=== PATIENT | female | born 1945 | race Caucasian/White ===

== ENCOUNTER 2017-09-18 08:00 | Day surgery (SDC) | payer MEDICARE, SELFPAY ==
[2017-09-18 08:27] VITALS: BP 155/71; PULSE 75; RESP 16; TEMP 36.1; O2SAT 100; BMI 28.1
--- NOTE | 2017-09-18 10:37 | PCM.OPRPT ---
Problem List (1) Family history of stomach cancer Status: Acute (2) Gastro-esophageal reflux disease without esophagitis Status: Acute (3) Personal history of colonic polyps Status: Acute Report of Operation Date of Procedure: 09/18/17 Pre-Operative Diagnosis: z80.0 family history of stomach cancer. k21.9 gastroesophageal reflux disease without esophagitis. z86.010 personal history of colonic polyps Post-Operative Diagnosis: Same Surgery/Procedure Performed:: 1. 24899 esophagogastroduodenoscopy. 2. Incomplete colonoscopy Description of Surgical Findings:: Was only able to pass the colonoscope to 40 cm was unable to get through the sigmoid colon Type of Anesthesia:: MAC Anesthesiologist: Ronn Atkinson Description of Procedure: Patient was brought into the endoscopy suite. Back of her throat was sprayed with Cetacaine spray. A bite-block was placed. She was placed on the left lateral decubitus position. She was given graded anesthesia. The scope was inserted in the back of the oropharynx and directed down through the esophagus into the stomach and into the duodenum without difficulty. Operative findings: 1. Duodenum: Normal appearance no mass lesions or mucosal all look normal here 2. Stomach: Normal appearance no mass lesions no ulcerations no signs of erythema no signs bleeding no mucosal abnormalities 3. Esophagus: Normal appearance no mass lesions minimal Schatzki's ring no signs of erythema all the mucosa looked normal. The colonoscope was inserted into the rectum directed through the rectum and into the sigmoid colon to approximately 40 cm I gave the patient some glucagon to see if we could loosen things up and make things a little easier to pass but I just was unable to do it I remove the scope entirety replaced the scope and tried to attempt to do it one more time but I still was unable to get past 40 cm. I decided it was not in her best interest for me to continue to push and I aborted the rest of the procedure and I will obtain a barium enema. - Admit VTE Documentation VTE Present on Admission: No VTE Mechan Device Prophylaxis: None VTE Pharm Prophylaxis ordered?: No Reason prophylaxis not ordered:: Treatment Not Indicated
[2017-09-18 10:38] VITALS: BP 113/56; BP 155/71; PULSE 76; RESP 16; TEMP 36.7; O2SAT 98
[2017-09-18 10:43] VITALS: BP 109/55; BP 155/71; PULSE 78; RESP 17; O2SAT 98
--- NOTE | 2017-09-18 10:43 | RAD_ITS ---
STUDY: BARIUM ENEMA. REASON FOR EXAM: Female, 71 years old. Incomplete colonoscopy. History of polyps. FLUOROSCOPY TIME (if supplied): (1:03) minutes/seconds TECHNIQUE: A smoked meat preparer film was obtained. Following this, barium was introduced retrograde through the rectum. The entire colon was opacified. COMPARISON: None. FINDINGS: On the smoked meat preparer film, the gas pattern is unremarkable. There is evidence of mild levoscoliosis and degenerative changes of the lower lumbar spine. Contrast was introduced retrograde into the rectum. The entire colon was opacified. There is no evidence of antegrade or retrograde obstruction to the flow of contrast. No mass lesion is seen. RAD/Barium Enema No Air Cont IMPRESSION: Unremarkable barium enema. Electronically Signed: Tc Bowen MD at 14:11 EST Tel [phone], Service support ,
[2017-09-18 10:48] VITALS: BP 110/57; BP 155/71; PULSE 75; RESP 17; O2SAT 99
[2017-09-18 10:53] VITALS: BP 114/72; BP 155/71; PULSE 72; RESP 16; TEMP 36.9; O2SAT 100
[2017-09-18 12:36] VITALS: BP 155/71
== END 2017-09-18 12:37 | disposition home or self-care (01) ==
LOC: EN 08:00 → AC 08:03
PROVIDERS: Family Provider Nurse Practitioner Primary Care; PCP Nurse Practitioner Primary Care; Visit Provider Surgery
PROC: 0DJD8ZZ Inspection of Lower Intestinal Tract, Via Natural or Artificial Opening Endoscopic (ICD-10-PCS; CPT 45378; principal; 2017-09-18 08:55)
DX: K22.2 Esophageal obstruction (principal); K21.9 Gastro-esophageal reflux disease without esophagitis; Z86.010 Personal history of colon polyps; Z80.0 Family history of malignant neoplasm of digestive organs; M19.90 Unspecified osteoarthritis, unspecified site; F32.9 Major depressive disorder, single episode, unspecified; K58.9 Irritable bowel syndrome, unspecified; R00.2 Palpitations; G43.909 Migraine, unspecified, not intractable, without status migrainosus; G25.81 Restless legs syndrome; E78.00 Pure hypercholesterolemia, unspecified; N28.1 Cyst of kidney, acquired; Z87.19 Personal history of other diseases of the digestive system; Z86.73 Personal history of transient ischemic attack (TIA), and cerebral infarction without residual deficits; Z86.718 Personal history of other venous thrombosis and embolism; Z85.828 Personal history of other malignant neoplasm of skin; Z78.0 Asymptomatic menopausal state; Z79.82 Long term (current) use of aspirin; Z79.899 Other long term (current) drug therapy
CPT/HCPCS: 43235; 45378; 74270; J7120; J1610

== ENCOUNTER → 2018-11-12 | Outpatient (CLI) | payer MEDICARE, SELFPAY ==
--- NOTE | 2018-11-12 13:00 | BRBX_PTH ---
PATIENT: ZACH SOL LOC: [facility] U#:[id number] AGE/SX: 72/F ROOM: RE11/12/[address]: Dr. Abilio Voss MD : 1945 BED: DIS: 11/12/2018 SPEC #: [id number] RECD: 11/12/18 15:07 STATUS: MICHI RECinthya #: [id number] JEANETTE: 11/12/18 13:[address]: Abilio Voss DEPT: SURGICAL PATHOLOGY RECD BY: Pola Rodriguez ENTERED: 11/13/18 11:11 SP TYPE: BREAST BX OT DR: Kimberlee Edmonds, LEAF SIZE PICKER-C Tissues: Left breast, NOS Procedures: Surgery Specimen Level IV HEADER OPERATION: Ultrasound-guided mammotome biopsy left breast PRE-OP DIAGNOSIS: Abnormal mammogram left breast R92.8 TISSUE SUBMITTED: Left breast biopsy ISCHEMIC TIME: 1 minute FIXATION TIME: 30.5 hours MICROSCOPIC DIAGNOSIS Left breast, ultrasound-guided mammotome core biopsy: Fibrocystic changes and intraductal hyperplasia without atypia. Negative for malignancy. MAT:donovan 11/14/18 COMMENT Correlation with clinical, radiologic findings and appropriate follow up are necessary. MICROSCOPIC DESCRIPTION Slides are reviewed. GROSS DESCRIPTION Received in fixative is one container labeled with the patient's name and designated left breast biopsy. The specimen consists of several pink needle core biopsies measuring in aggregate 1.5 x 0.8 x 0.3 cm. The specimen is totally submitted in one cassette. / CE:donovan 11/13/18 TC:5 CPT: 24801
[2018-11-12 13:03] VITALS: BMI 28.0
== END | disposition home or self-care (01) ==
LOC: LABSPEC 15:12
PROVIDERS: Family Provider Nurse Practitioner Primary Care; PCP Nurse Practitioner Primary Care; Referring Provider Surgery; Visit Provider Surgery
DX: R92.8 Other abnormal and inconclusive findings on diagnostic imaging of breast (principal)
CPT/HCPCS: 88305

== ENCOUNTER → 2021-04-05 11:50 | Outpatient (CLI) | payer MEDICARE, SELFPAY ==
[2021-04-12 13:05] LABS: Ca Oxalate, Monohydrate 100
[2021-04-12 13:08] LABS: Size 3X3; Source NOT GIVEN
== END ==
PROVIDERS: PCP Nurse Practitioner Primary Care; Referring Provider Nurse Practitioner Adult Health; Visit Provider Nurse Practitioner Adult Health
DX: N20.0 Calculus of kidney (principal)
CPT/HCPCS: 82360

== ENCOUNTER → 2023-09-18 | Outpatient (CLI) | payer MEDICARE, SELFPAY ==
--- NOTE | 2023-09-18 14:24 | NEURO ---
NCS and/or EMG Patient Report Ordering Doctor: Kimberlee Edmonds NP DATE OF SERVICE: 09/18/23 Ernestina Raya presents for electrodiagnostic testing of the upper limbs. She reports numbness in both hands, worse on the right side. She reports bilateral hand weakness. Electrodiagnostic findings: Median motor nerve demonstrates normal distal latency and amplitude with borderline reduced conduction velocity bilaterally. Right ulnar motor nerve demonstrates normal distal latency and amplitude with reduced conduction velocity across the elbow. Left ulnar motor response within normal limits. Normal median and ulnar F?waves. Prolonged median sensory latency at the wrist bilaterally. Prolonged median palmar latency bilaterally. Normal ulnar and radial sensory responses. Needle EMG testing was performed in the upper limbs. All muscles tested showed no evidence of denervation with normal motor unit action potentials. Electrodiagnostic assessment: This is an abnormal study. 1. Electrodiagnostic findings suggestive of right-sided ulnar neuropathy, consistent with a mild right cubital tunnel syndrome. 2. Electrodiagnostic findings suggestive of bilateral median mononeuropathy, consistent with a mild bilateral carpal tunnel syndrome. 3. No electrodiagnostic evidence for cervical radiculopathy. Multi Select Codes Neurology Neurology Interp Codes: 49223-28 Musc test done w/n test comp (interp) (2) and 90740-29 Nrv cndj test 13/> studies (interp)
== END | disposition home or self-care (01) ==
PROVIDERS: PCP Nurse Practitioner Primary Care; Referring Provider Nurse Practitioner Primary Care; Visit Provider Nurse Practitioner Primary Care
DX: M25.539 Pain in unspecified wrist (principal); R20.0 Anesthesia of skin
CPT/HCPCS: 95886; 95913